=== PATIENT | female | born 1975 | race Caucasian/White ===

== ENCOUNTER → 2018-05-19 12:23 | Outpatient (REF) | payer BC, SELFPAY ==
--- NOTE | 2018-05-19 15:00 | SKI_PTH ---
PATIENT: Zohra Esposito LOC: [facility] U#:[id number] AGE/SX: 50/F ROOM: RE05/19/[address]: Pham Phillips MD : 1975 BED: DIS: SPEC #: [id number] RECD: 05/20/18 12:39 STATUS: ASHLEIGH DOWNS #: [id number] JAYDA: 05/19/18 15:[address]: Pham Wilson DEPT: Surgical Specimen RECD BY: Mervat Hernandez ENTERED: 05/20/18 12:40 SP TYPE: MARIUM MASON DR: NEL Williamson Tissues: 1 - SKIN BIOPSY(SHAVE/PUNCH) 2 - SKIN BIOPSY(SHAVE/PUNCH) 3 - SKIN BIOPSY(SHAVE/PUNCH) 4 - SKIN BIOPSY(SHAVE/PUNCH) Procedures: SKIN LEVEL 4 Comments: [id number]
== END ==
LOC: LBN 12:23
PROVIDERS: PCP Nurse Practitioner Family; Visit Provider Internal Medicine
DX: D22.71 Melanocytic nevi of right lower limb, including hip (principal); L82.1 Other seborrheic keratosis; D17.24 Benign lipomatous neoplasm of skin and subcutaneous tissue of left leg
CPT/HCPCS: 88305

== ENCOUNTER → 2018-05-22 01:42 | Outpatient (CLI) | payer BC, SELFPAY ==
--- NOTE | 2018-05-22 09:51 | DI.REPORT_ITS ---
SYMPTOM/DIAGNOSIS: WORSENING LEFT CALCANEAL PAIN LFT FOOT PAIN M79.672 LEFT FOOT: The bony structures are normally mineralized. The joint space is intact. A 6.5 mm calcaneal spur is demonstrated. The examination is otherwise unremarkable.
--- NOTE | 2018-05-22 09:51 | DI.REPORT_ITS ---
SYMPTOM/DIAGNOSIS: SCREENING, Z12.31 MAMMOGRAM: Mammograms were interpreted according to the usual protocol including computer analysis with CAD system, tomosynthesis and C view imaging. The breast tissue is of moderate radiodensity - category B. There are two questionable small areas of nodularity lying in the medial portion of the right breast. SUMMARY: There is a question of interval development of one or possibly two small nodular densities in the right breast. Further assessment with a CC compression spot film and ultrasound is recommended. Category 0 -B MQSA ASSESSMENT OF FINDINGS: Incomplete: Needs additional imaging evaluation. Category 0. Patient will receive a letter notifying them of these results. BI-RADS category B. There are scattered areas of fibroglandular density.
== END ==
PROVIDERS: PCP Nurse Practitioner Family; Visit Provider Nurse Practitioner Family
DX: M79.672 Pain in left foot (principal); Z12.31 Encounter for screening mammogram for malignant neoplasm of breast; R92.8 Other abnormal and inconclusive findings on diagnostic imaging of breast
CPT/HCPCS: 77063; 77067; 73630

== ENCOUNTER → 2018-05-22 01:45 | Outpatient (CLI) | payer BC, SELFPAY ==
[2018-05-22 10:01] LABS: Cholesterol 148 mg/dL (50-200); Glucose 102 mg/dL (70-100); HDL Cholesterol 42 mg/dL (40-60); LDL CHOLESTEROL 96 mg/dL (<100); Triglyceride 56 mg/dL (30-150)
== END ==
PROVIDERS: PCP Nurse Practitioner Family; Visit Provider Nurse Practitioner Family
DX: Z00.00 Encounter for general adult medical examination without abnormal findings (principal); E66.9 Obesity, unspecified
CPT/HCPCS: 36415; 80061; 82947; 83721

== ENCOUNTER 2018-06-06 13:00 | Outpatient (RCR) | payer BC, SELFPAY ==
--- NOTE | 2018-06-03 13:41 | IE_ITS ---
Date: June 03, 2018 Referring: Sonia Mathis NP M.D. Diagnosis: left foot pain SUBJECTIVE: History of Present Illness: Zohra is a 42 year old female noting increasing left foot pain beginning in Nov 2017. She reports she increased her exercise regime to lose weight. She has lost a total of 60# overall, which is helpful, however the foot continues to worsen. She has been utilizing self treatment for the past few months. She has had previous plantar fascitis, and has utilized self stretching and self massage techniques with minimal benefits. She waited to seek consultation via her PCP at her Wellness appointment a couple of weeks ago. She was referred to [facility]. Pain Ratin/10 Pain Location: Plantar surface of the left foot, extending into the Achilles tendon and calf of the left LE. Current Level of Function: Restricted with her walking distance. Has limited heel strike because of the pain. The first few steps after prolonged sitting are quite uncomfortable. She continues to push through with her normal exercise regime. She is very pleased about her weight loss, and wants to continue to lose. 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 She lives alone in a private home. Comorbidities: , S/p right rotator cuff repair Falls in the last year: __x__ No ____Yes - How many? ____ - (if over 2, balance SM needs to be completed) Reported hospitalizations in the last year - __x__ No ____ Yes - Dates of admission/reason: Medications: See patient's EMR. Quality of Life: ____ Excellent __x__ Good ____ Fair ____ Poor Standardized Measures: LEFS score: _44/80 representing a 45% perceived disability rating.___ OBJECTIVE: Posture: Moderate pronation bilaterally. Observation: (behavior, atrophy, skin color, etc.) Does not appear to be in any acute distress. She is independent with functional transfers. Gait: Limited stance phase. Limited heel strike on the left LE secondary to increased left heel pain. Palpation: Sensitive at the medial calcaneal tubercle, along the plantar fascia on the left and into the Achilles tendon, as well as into the medial gastroc and soleus. ROM: Demonstrates WFL knee and hip mobility. Has tightness with ankle dorsiflexion bilaterally, limited to 5 . Otherwise, has WNL ankle plantar flexion, inversion and eversion. Tightness of the hamstrings, limited to 75 , however is equal bilaterally. Strength: Grossly 5/5 throughout LE myotomes with the exception of right dorsiflexion at 4/5 with pain on the left. Neuro: Sensation intact to light touch. Balance: Unilateral stance 10+ seconds bilaterally with increased irritation on the left. Treatment: IE: 94142 x1 Patient Education: Instruction in a HEP promoting gastroc soleus and plantar fascia flexibility. Instruction to avoid walking barefoot. Always keep adequate arch support with appropriate footwear. Accommodative orthotics will be made at her next appointment. She did receive an ultrasound to the Achilles x8 minutes @50% @3 megahertz 1.0 watt per cm sq while in prone (left Achilles). Soft tissue mobilization to the left plantar fascia, gastroc and soleus. Desensitization and trigger point work provided as needed. Ice massage to the Achilles and plantar fascia as well as medial calcaneal tubercle. Direct treatment time: 50 min. Total treatment time: 50 min. ASSESSMENT: Patient is a 42-year-old female, referred for PT services with the diagnosis of left foot pain. Patient presents with clinical signs and symptoms consistent with plantar fascitis left foot and Achilles tendinitis, as demonstrated by the following impairment level findings: 1) impaired gait pattern 2) impaired balance 3) impaired muscle performance 4) soft tissue dysfunction Impairments are contributing to the following functional limitations: 1) stair negotiation 2) walking distance 3) standing tolerance Patient is assessed as: __x__ Low 52456 complexity, based on the following: History: (list): See comorbidities and social history Examination: (list): See above for functional limitations and impairments. Presentation: Stable Decision-Making: Low complexity supported by clinical judgement and LEFS score ____ Patient requires skilled PT intervention to remediate the above functional limitations to return to: __x__ Premorbid level of function __x__ Return to full functional mobility with manageable symptoms STG: __4__ weeks. 1) independent and compliant with strong HEP 2) improve soft tissue length of the gastroc to 10 with manageable symptoms 3) able to demonstrate improved gait mechanics with normalized heel to toe fashion with improved heel strike and stance phase with more manageable symptoms 4) reduce perceived disability rating via LEFS by 25% LTG: __8__ weeks. 1) returning to premorbid level of function with more manageable symptoms 2) returning to full, painfree functional mobility 3) independent with self maintenance program PLAN: Patient to be seen 2x per week, for 8 weeks, adjusting frequency of visits per patient symptoms and response to treatment. Treatment to include: Manual therapy - 47823 - promotion of soft tissue mobs and soft tissue stretching, desensitization Ultrasound - 57749 - applied as need be for inflammation and pain reduction at the Achilles and plantar fascia Therapeutic exercise - 17905 - promotion of open and closed kinetic chain stabilization, proprioceptive and balance activities, eccentric gastroc training in order for Zohra to be able to resume her normal exercise regime with more symptomatic relief. I did recommend elliptical machine vs. treadmill , at this time, to reduce the repetitive stress and irritation to the heel and calf. Accommodative orthotics will be fabricated at her next session. Will discharge when the above goals have been met. Thank you for this referral. Please do not hesitate to contact me with any questions or concerns regarding this patient's plan of care.
--- NOTE | 2018-06-06 13:00 | NT_ITS ---
06/06/18 Today I fabricated a pair of custom orthotics using Aliplast and Plastizote with felt saphoid pad. These fit well in her shoes upon completion. Proper break in time was gone over with Zohra. She will contact me if she needs any modifications. NO CHARGE. RF/dl
== END 2018-06-13 23:59 | disposition home or self-care (01) ==
LOC: PT 13:00
PROVIDERS: PCP Nurse Practitioner Family; Referring Provider Nurse Practitioner Family; Visit Provider Nurse Practitioner Family
DX: M72.2 Plantar fascial fibromatosis (principal); M76.62 Achilles tendinitis, left leg
CPT/HCPCS: 97161

== ENCOUNTER 2018-06-17 01:27 | Outpatient (CLI) | payer BC, SELFPAY ==
--- NOTE | 2018-06-17 14:30 | DI.COMBO_ITS ---
SYMPTOMS/DIAGNOSIS: F/U ABNORMAL MAMMO, ? ONE OR TWO SMALL NODULAR DENSITIES ADDITIONAL MAMMOGRAPHIC VIEWS, RIGHT BREAST, AND RIGHT BREAST ULTRASOUND: Additional images are interpreted according to the usual protocol including tomosynthesis and 2D imaging. Additional mammographic views were obtained to evaluate questionable areas of asymmetric density in upper outer quadrant of the right breast seen on recent mammogram. Additional mammographic views failed to show a discrete mass. Breast ultrasound shows no evidence of a mass or cyst. CONCLUSION: No specific evidence of malignancy at this time. Follow-up unilateral right breast mammogram recommended in six months. Category 3, breast density category B. MQSA ASSESSMENT OF FINDINGS: Probably benign. Six month follow-up recommended. Category 3. Patient will receive a letter notifying them of these results. BI-RADS category B. There are scattered areas of fibroglandular density.
== END 2018-06-17 01:47 ==
PROVIDERS: PCP Nurse Practitioner Family; Visit Provider Nurse Practitioner Family
DX: Z12.31 Encounter for screening mammogram for malignant neoplasm of breast (principal); R92.8 Other abnormal and inconclusive findings on diagnostic imaging of breast; N64.59 Other signs and symptoms in breast
CPT/HCPCS: 76642; 77063; 77067

== ENCOUNTER 2018-10-09 13:31 | Outpatient (CLI) | payer BC, SELFPAY ==
[2018-10-09 16:04] LABS: Anion Gap 10.1 mmol/L (3-11); BUN 13 mg/dL (7-18); CO2 26.9 mmol/L (21.0-32.0); CREATININE 0.83 mg/dL (0.55-1.02); Calcium 8.7 mg/dL (8.5-10.1); Chloride 101 mmol/L (98-107); Glucose 126 mg/dL (70-100); Potassium 3.9 mmol/L (3.5-5.1); Sodium 138 mmol/L (136-145)
[2018-10-09 16:47] LABS: Hemoglobin A1C 5.8 % (4.5-6.2)
== END 2018-10-09 13:51 ==
PROVIDERS: PCP Nurse Practitioner Family; Visit Provider Nurse Practitioner Family
DX: R73.03 Prediabetes (principal); E16.2 Hypoglycemia, unspecified
CPT/HCPCS: 36415; 80048; 83036

== ENCOUNTER 2018-12-15 01:30 | Outpatient (CLI) | payer BC, SELFPAY ==
--- NOTE | 2018-12-15 14:22 | DI.MAMMO_ITS ---
SYMPTOM/DIAGNOSIS: 6 MO F/U, F/U ABNL MAMMO RIGHT MAMMOGRAM: Mammograms were interpreted according to the usual protocol including computer analysis with CAD system, tomosynthesis and C view imaging. Comparison is made with 2018 and 2013. This is a 6 month follow up for a small area of nodularity seen in the lateral breast. The right breast is composed of scattered fibroglandular densities. No suspicious masses or suspicious microcalcifications are seen. The questioned areas of nodularity are not evident on today's exam. IMPRESSION: Category 1, negative mammogram. Bilateral screening should be resumed in 6 months. [facility] ASSESSMENT OF FINDINGS: Negative. Category 1. Patient will receive a letter notifying them of these results. BI-RADS category B. There are scattered areas of fibroglandular density.
== END 2018-12-15 01:50 ==
PROVIDERS: PCP Nurse Practitioner Family; Visit Provider Nurse Practitioner Family
DX: Z12.31 Encounter for screening mammogram for malignant neoplasm of breast (principal); R92.8 Other abnormal and inconclusive findings on diagnostic imaging of breast; N60.81 Other benign mammary dysplasias of right breast
CPT/HCPCS: 77061; 77065; G0279

== ENCOUNTER 2019-03-02 12:14 | Outpatient (REF) | payer BC, SELFPAY | END 2019-03-02 12:34 | LOC: LBN 12:14 | PROVIDERS: PCP Nurse Practitioner Family; Visit Provider Nurse Practitioner Family | DX: R69 Illness, unspecified (principal) | CPT/HCPCS: 87324 ==

== ENCOUNTER 2019-07-08 07:23 | Outpatient (CLI) | payer OTHER, SELFPAY ==
--- NOTE | 2019-07-08 09:20 | DI.RAD_ITS ---
EXAM: XR CHEST 2V PA LATERAL INDICATION: repetitive head bunting trauma yesterday S29.9XXA INJURY OF THORAX,Y99.0, COMPARISON: ABD FLAT UPRIGHT PA CHEST from 01/10/2015 TECHNIQUE: 2D digital imaging was performed. FINDINGS: The lungs are well expanded and free of infiltrate. There is no evidence of a pneumothorax or pleural effusion. The heart is not enlarged. The hilar structures, tracheal air column and mediastinum appe ar intact. There is no demonstrated rib fracture. Note is made of post surgical changes involving t he right clavicle. IMPRESSION: There is no evidence of acute cardiopulmonary disease. No acute fractures are identified.
== END 2019-07-08 07:43 ==
PROVIDERS: PCP Nurse Practitioner Family
DX: S20.211A Contusion of right front wall of thorax, initial encounter
CPT/HCPCS: 71046

== ENCOUNTER 2019-11-02 01:21 | Outpatient (CLI) | payer BC, SELFPAY ==
[2019-11-02 12:56] LABS: Hemoglobin A1C 5.6 % (3.8-5.6)
[2019-11-02 13:46] LABS: Anion Gap 7.3 mmol/L (3-11); BUN 11 mg/dL (7-18); CO2 29.7 mmol/L (21.0-32.0); CREATININE 0.78 mg/dL (0.55-1.02); Calcium 8.7 mg/dL (8.5-10.1); Calculated LDL 94 mg/dL; Chloride 104 mmol/L (98-107); Cholesterol 151 mg/dL (<200); Glucose 101 mg/dL (74-106); HDL Cholesterol 44 mg/dL (40-60); Potassium 4.3 mmol/L (3.5-5.1); Sodium 141 mmol/L (136-145); Triglyceride 66 mg/dL (<150)
== END 2019-11-02 01:41 ==
PROVIDERS: PCP Nurse Practitioner Family; Visit Provider Nurse Practitioner Family
DX: R73.03 Prediabetes (principal)
CPT/HCPCS: 36415; 80048; 80061; 83036

== ENCOUNTER 2019-11-30 02:08 | Outpatient (CLI) | payer BC, SELFPAY ==
--- NOTE | 2019-11-30 14:54 | DI.CT_ITS ---
EXAM: CT SINUS WO CLINICAL HISTORY: RHINOSINUSITIS NOT RESOLVING WITH ABX, CHRONIC SINUSITIS, J32.9 COMPARISON: No exams were available for comparison FINDINGS: The frontal sinuses are clear. There is opacification of a single ethmoid air cell on the right. The sphenoid sinuses are clear. The maxillary sinuses are clear. No fluid levels are seen in the sinuses. The mastoid air cells are well pneumatized. The nasal septum deviates to the right. The turbinates are unremarkable. The ostiomeatal complexes are unremarkable. The bones are intact. The soft tissues are unremarkable. IMPRESSION: No significant sinus disease.
== END 2019-11-30 02:28 ==
PROVIDERS: PCP Nurse Practitioner Family; Visit Provider Nurse Practitioner Family
DX: J32.9 Chronic sinusitis, unspecified (principal); Z79.2 Long term (current) use of antibiotics
CPT/HCPCS: 70486

== ENCOUNTER 2019-12-09 01:40 | Outpatient (CLI) | payer BC, SELFPAY ==
--- NOTE | 2019-12-09 09:45 | DI.MAMMO_ITS ---
EXAM: MAMMO SCREENING CLINICAL HISTORY: screening Z12.39 TECHNIQUE: Mammograms were interpreted according to the usual protocol including computer analysis w [employer] CAD system, tomosynthesis and C-view imaging. COMPARISON: 2013 through 2018 FINDINGS: The breasts are composed of scattered fibroglandular densities, Breast Density category B. No suspicious masses or suspicious microcalcifications are seen. No skin thickening or abnormal axillary lymph nodes are seen. There has been no significant change from prior exams. IMPRESSION: BIRADS Category 1, negative mammogram. Yearly screening mammography is recommended.
== END 2019-12-09 02:00 ==
PROVIDERS: PCP Nurse Practitioner Family; Visit Provider Nurse Practitioner Family
DX: Z12.31 Encounter for screening mammogram for malignant neoplasm of breast (principal)
CPT/HCPCS: 77063; 77067

== ENCOUNTER 2020-09-05 09:54 | Outpatient (CLI) | payer BC, SELFPAY ==
[2020-09-06 19:13] LABS: Patient Race White; SARS-CoV-2 RNA Undetected (Undetected); SARS-CoV-2 Specimen Source Nasal
== END 2020-09-05 10:14 ==
PROVIDERS: PCP Nurse Practitioner Family; Visit Provider Nurse Practitioner Family
DX: R05 Cough (principal)
CPT/HCPCS: U0003

== ENCOUNTER 2020-11-04 17:00 | Outpatient (REF) | payer BC, SELFPAY ==
--- NOTE | 2020-11-04 15:30 | PAPFT_PTH ---
PATIENT: Zohra Esposito LOC: [facility] U#:[id number] AGE/SX: 45/F ROOM: RE11/04/[address]: NEL Williamson : 1975 BED: DIS: 11/04/2020 SPEC #: [id number] RECD: 11/04/20 17:26 STATUS: ASHLEIGH DOWNS #: [id number] JAYDA: 11/04/20 15:[address]: Sonia Mathis DEPT: [facility] Cytology RECD BY: Mervat Hernandez Tissues: 1 - CX/ENDOCX FOR PAP SMEARS Procedures: PAP THIN PREP/UVM Screening HPV DNA PROBE Comments: [id number]
== END 2020-11-04 17:20 ==
LOC: LBN 17:00
PROVIDERS: PCP Nurse Practitioner Family; Visit Provider Nurse Practitioner Family
DX: Z12.4 Encounter for screening for malignant neoplasm of cervix (principal); Z11.51 Encounter for screening for human papillomavirus (HPV)
CPT/HCPCS: 88142; 87624

== ENCOUNTER 2020-11-08 03:50 | Outpatient (CLI) | payer BC, SELFPAY ==
[2020-11-08 11:06] LABS: Hemoglobin A1C 5.7 % (<5.7)
[2020-11-08 11:59] LABS: Anion Gap 7.2 mmol/L (3-11); BUN 15 mg/dL (7-18); CO2 25.8 mmol/L (21.0-32.0); CREATININE 0.82 mg/dL (0.55-1.02); Calcium 8.8 mg/dL (8.5-10.1); Calculated LDL 90 mg/dL (<100); Chloride 105 mmol/L (98-107); Cholesterol 145 mg/dL (<200); Glucose 101 mg/dL (74-106); HDL Cholesterol 43 mg/dL (40-60); Potassium 4.3 mmol/L (3.5-5.1); Sodium 138 mmol/L (136-145); Triglyceride 62 mg/dL (<150)
== END 2020-11-08 04:10 ==
PROVIDERS: PCP Nurse Practitioner Family; Visit Provider Nurse Practitioner Family
DX: R73.03 Prediabetes (principal)
CPT/HCPCS: 36415; 80048; 80061; 83036

== ENCOUNTER 2020-12-23 08:21 | Outpatient (CLI) | payer BC, SELFPAY ==
[2020-12-24 18:03] LABS: COVID-19 RT-PCR UVMMC Result Negative (Negative)
== END 2020-12-23 08:22 | disposition home or self-care (01) ==
LOC: LBO 08:21
PROVIDERS: PCP Nurse Practitioner Family; Visit Provider Nurse Practitioner Family
DX: Z20.822 Contact with and (suspected) exposure to COVID-19 (principal)
CPT/HCPCS: U0003

== ENCOUNTER 2020-12-28 21:43 | Outpatient (REF) | payer BC, SELFPAY | END 2020-12-28 21:44 | disposition home or self-care (01) | LOC: NCHCN 21:43 | PROVIDERS: PCP Physician Assistant; Visit Provider Physician Assistant | DX: J02.9 Acute pharyngitis, unspecified (principal) | CPT/HCPCS: 87070 ==

== ENCOUNTER 2020-12-29 07:36 | Outpatient (CLI) | payer BC, SELFPAY ==
[2020-12-30 13:07] LABS: COVID-19 RT-PCR UVMMC Result Negative (Negative)
== END 2020-12-29 07:37 | disposition home or self-care (01) ==
PROVIDERS: PCP Nurse Practitioner Family; Visit Provider Physician Assistant
DX: Z20.822 Contact with and (suspected) exposure to COVID-19 (principal); J02.9 Acute pharyngitis, unspecified
CPT/HCPCS: U0003

== ENCOUNTER 2021-07-20 21:21 | Outpatient (REF) | payer BC, SELFPAY ==
[2021-07-22 11:44] LABS: COVID-19 RT-PCR UVMMC Result Negative (Negative)
== END 2021-07-20 21:22 | disposition home or self-care (01) ==
LOC: LBN 21:21
PROVIDERS: PCP Nurse Practitioner Family; Visit Provider Nurse Practitioner Family
DX: J02.9 Acute pharyngitis, unspecified (principal); Z20.822 Contact with and (suspected) exposure to COVID-19
CPT/HCPCS: U0003; 87070

== ENCOUNTER 2021-08-01 16:36 | Outpatient (CLI) | payer BC, SELFPAY ==
--- NOTE | 2021-08-01 16:30 | RT.EKG_ITS ---
APPROVED REPORT Exam: Resting ECG Reason for Exam: Shortness of Patient Location: O HR:65 bpm ECG Measurements Heart Rate 65 AXIS VT 183 P 47 QRSd 89 QRS 54 QT 403 T 26 QTc 419 Conclusion Sinus arrhythmia...V-rate 55- 76, variation>10%
--- NOTE | 2021-08-01 16:45 | RT.EKG_ITS ---
APPROVED REPORT Exam: Resting ECG Reason for Exam: shortness of breath Patient Location: O HR:61 bpm ECG Measurements Heart Rate 61 AXIS IN 187 P 19 QRSd 88 QRS 52 QT 414 T 15 QTc 418 Conclusion Sinus rhythm...normal P axis, V-rate 60- 99 Normal Electrocardiogram
== END 2021-08-01 16:37 | disposition home or self-care (01) ==
PROVIDERS: PCP Nurse Practitioner Family; Visit Provider Physician Assistant
DX: R06.02 Shortness of breath (principal)
CPT/HCPCS: 93010

== ENCOUNTER 2021-08-02 07:18 | Emergency (ER) | payer BC, SELFPAY ==
[2021-08-02] VITALS (19 sets, daily range): BP systolic 122–157; BP diastolic 56–82; PULSE 70–88; RESP 11–24; TEMP 36.4; O2SAT 92–100
--- NOTE | 2021-08-02 07:15 | RT.EKG_ITS ---
APPROVED REPORT Exam: Resting ECG Reason for Exam: trouble breathing Patient Location: E HR:83 bpm ECG Measurements Heart Rate 83 AXIS NE 164 P 54 QRSd 89 QRS 56 QT 360 T 2 QTc 423 Conclusion Sinus rhythm...normal P axis, V-rate 60- 99
--- NOTE | 2021-08-02 08:00 | W.ED.GENAD ---
Discharge Plan Disposition Patient Disposition: HOME Condition: Improving Discharge Details Clinical Impression: Acute bronchospasm Primary Care Provider: Sonia Mathis ED Provider: John Chapa Home Meds and New Rx's Prescriptions: New prednisone 20 mg tablet 40 mg PO DAILY 3 Days Qty: 6 RF: 0 Continued cetirizine [Zyrtec] 10 mg tablet 10 mg PO DAILY PRN (Reason: allergy symptoms) RF: 0 Mirena 20 mcg/24 hours (6 yrs) 52 mg intrauterine device 1 device intrauterine ONCE Qty: 1 RF: 0 mometasone 50 mcg/actuation spray,non-aerosol 2 spray DOTTIE DAILY PRN (Reason: nasal congestion) Qty: 17 RF: 4 Discontinued prednisone 20 mg tablet 40 mg PO DAILY Qty: 10 RF: 0 Discharge Instructions Instructions: Bronchospasm (ED) Additional Instructions: Follow-up in clinic tomorrow at 9 AM as planned. Take prednisone as prescribed for 3 more days. May use albuterol as provided every 4 hours if needed. Return to the ER for any acute concerns. Medical Decision Making This is a 45-year-old female who presents from home. She has had approximately 4 weeks of a number of symptoms began with a viral upper respiratory illness that felt like previous sinus infection. She has been seen at urgent care in [place], and a primary care physician's office, at [facility]. She has completed a 10-day course of Augmentin and a short burst of prednisone, 40 mg x 5 days with improvement of her ear and throat discomfort. She now presents to ER with complaints of exertional shortness of breath over days to weeks time that seems to have progressed. She did have an urgent care visit yesterday and was referred to the ER but declined at that time. Patient states to me that she has a history of hayfever and frequent sinusitis. No history of reactive airway disease. She does have family history of coronary artery disease. She is afebrile, oxygenating normally and speaking in full sentences. Exam reveals diminished breath sounds and a right-sided wheeze. Differential diagnosis is broad and will consider reactive airway disease, pneumonia/bronchitis, PE or ACS. At the urgent care visit yesterday her discharge instructions included to obtain a CT angiogram and an outpatient stress test. Given both the subjective and objective contributory to her differential diagnosis, patient IV access, screening laboratories obtained referred for chest imaging and COVID-19 swab. Laboratories including CBC, comprehensive panel, BNP, D-dimer and troponin are reassuring. SARS-CoV-2 PCR negative. With her complaint of right anterior chest pain, pleuritic at times, patient underwent CT imaging of the chest: No acute findings. Observed on a vehicle monitor technician and repeat troponin obtained and negative. The patient stable for discharge to home. I will place her on 3 further days of prednisone given the recent sinusitis and probable bronchitis. We will dispense her an albuterol inhaler and she has follow-up tomorrow clinic for recheck. Further test including stress test may be discussed at that time. HPI General Mode of arrival: ambulatory. Date/Time Provider Initiated Documentation: 08/02/21 07:35. Limitations to Documentation: no limitations. Information obtained by: patient. History of Present Illness 45 year old F presents to the emergency department with the chief complaint of Exertional shortness of breath, described as moderate, Quality is described as constant, and is localized to the chest. Patient started experiencing this day(s) and it has been intermittent. No relieving factors improve symptom(s), No exacerbating factors reported . Patient notes cough and shortness of breath; denies chest pain. Patient did receive the following treatments prior to arrival, none Related Data Home Medications Medication Instructions Recorded Confirmed cetirizine 10 mg tablet 10 mg PO DAILY PRN 07/01/20 08/02/21 levonorgestrel 20 mcg/24 hours (7 1 device INTRAUTERINE ONCE #1 ea 01/26/21 08/02/21 yrs) 52 mg intrauterine device mometasone 50 mcg/actuation nasal 2 spray DOTTIE DAILY PRN #17 gm 01/30/21 08/02/21 spray prednisone 40 mg PO DAILY 3 Days #6 tab 08/02/21 Previous Rx's Medication Instructions Recorded levonorgestrel 20 mcg/24 hours (7 1 device INTRAUTERINE ONCE #1 ea 01/26/21 yrs) 52 mg intrauterine device mometasone 50 mcg/actuation nasal 2 spray DOTTIE DAILY PRN #17 gm 01/30/21 spray prednisone 40 mg PO DAILY 3 Days #6 tab 08/02/21 Allergies Allergy/AdvReac Type Severity Reaction Status Date / Time HAY FEVER Allergy Mild HEAD Uncoded 08/01/21 15:56 CONGESTION General Stated Complaint: RespSymp ZECHARIAH: 3 Review of Systems Narrative: No syncope, some lightheadedness with rising. Feels her ears and sore throat are improved. No change to diet or GI/ habits. No chest pain. 8 systems reviewed and otherwise negative. Denies lower extremity pain or swelling. [facility] Medical History Allergic rhinitis Chronic rhinosinusitis IBS (irritable bowel syndrome) IUD surveillance Mirena IUD inserted 05/20/18 Obesity Prediabetes Surgical History History of section (06/28/95) S/P arthroscopy of right shoulder (03/19/17) Family History Mother , At 66 of multiple myeloma MDS (myelodysplastic syndrome) Multiple myeloma Father Heart disease Myocardial infarction Hypertension Hyperlipidemia Type 2 diabetes mellitus Sister No problems noted. Sister No problems noted. Brother Prostate cancer Son No problems noted. Son No problems noted. Maternal Grandfather No problems noted. Maternal Grandmother COPD (chronic obstructive pulmonary disease) Paternal Grandfather No problems noted. 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 Pets and animals: Yes Pets and animals: cat(s) and dog(s) Sexually active: No Current gender identity: female What is your relationship status?: refused to answer How often do you talk on the phone with friends or family?: decline to answer How often do you get together with friends or relatives?: three or more times per week How often do you attend zoroastrianism or jew services?: decline to answer Do you belong to any clubs or organized social groups?: yes Panel score (0-1 are the most socially isolated patients): 2 What type of physical activity do you participate in: walking Duration: 15-30 minutes/day Frequency: 5-6 times per week Peggy/Pentecostalism: None Special peggy needs: No Seatbelt use: always Drive intox or ride w/intox backhaul driver: No Do you feel safe at home: Yes Do you feel safe in your relationship?: Yes Female Reproductive History Menstrual control method: progestin IUCD (Mirena IUD inserted 05/20/18) History History 2 Para 2 Hx # Term Pregnancies Multiple births Hx # Pregnancies Ectopic pregnancies AB induced Hx Number of Living Children 2 AB spontaneous Exam Narrative Exam Narrative: GEN: awake, alert, oriented 3. Pleasant, well groomed, interactive. HEAD: Normocephalic, atraumatic ENT: Mucous membranes moist, oropharynx unremarkable, tympanic membranes visualized, clear, pearlescent, external ear exam unremarkable EYES: PERRL, EOMI NECK: Full ROM, no PRISCILA, no menigismus CHEST/RESP: Nontender, diminished bilaterally, right side wheeze, expiratory CARDIOVASCULAR: RRR, no murmur, rub pepper. 2+ Rad pulse bilateral ABDOMEN: Soft, nontender, no mass. +Bowel sounds EXT: Full ROM, no edema, no rash Neuro: Grossly normal neurologic exam, conversant, interactive. Psych: Speech fluent, thoughts congruent, affect normal Course Vital Signs Vital signs: Vital Signs Temperature 36.4 C L 08/02/21 07:24 Pulse 86 08/02/21 07:24 Respiratory Rate 18 08/02/21 07:24 Blood Pressure 157/81 H 08/02/21 07:24 Pulse Oximetry 97 08/02/21 07:24 Temperature 36.4 C L 08/02/21 07:24 Pulse 86 08/02/21 07:24 Pulse 86 08/02/21 07:50 Respiratory Rate 22 08/02/21 07:50 Respiratory Effort 08/02/21 07:29 Blood Pressure 157/81 H 08/02/21 07:24 Pulse Oximetry 98 08/02/21 07:50 Pain Level 1 08/02/21 07:24
[2021-08-02] MEDS: Normal Saline 1,000 ML 1000 ML IV (08:05)
[2021-08-02 08:10] LABS: Source Nasal/Nares
[2021-08-02 08:11] LABS: Abs Immature Grans 0.06 10^3/uL (0.0-0.06); Absolute Basophil Count 0.02 10^3/uL (0.0-0.2); Absolute Eosinophil Count 0.04 10^3/uL (0.0-0.7); Absolute Lymphocyte Count 2.79 10^3/uL (1.2-3.4); Absolute Neutrophil Count 6.44 10^3/uL (1.2-6.7); Basophils % 0.2; Eosinophils % 0.4; HCT 37.7 % (36.0-46.0); HGB 12.5 g/dL (11.2-15.7); Immature Grans % 0.6; Lymphocytes % 27.8; MCH 30.3 pg (27.0-33.0); MCHC 33.2 % (32.0-36.0); MCV 91.3 fL (80-95); MPV 10.3 fL (8.0-11.0); Nucleated RBC 0 %; Platelet Count 283 10^3/uL (130-400); RBC 4.13 10^6/uL (3.93-5.22); RDW 12.4 % (11.7-14.6); RDW-SD 41.4 fL; WBC 10.05 10^3/uL (4.4-10.8)
--- NOTE | 2021-08-02 08:21 | DI.RAD_ITS ---
Exam(s) XR PORTABLE CHEST AP EXAM: XR PORTABLE CHEST AP CLINICAL HISTORY: SOB TECHNIQUE: 2D digital imaging was performed of the chest. One image was obtained. An AP view was ob tained. COMPARISON: CR XR CHEST 2V PA LATERAL from 07/08/2019 CR XR CHEST 2V PA LATERAL from 07/08/2019 FINDINGS: MEDIASTINUM: Normal. HEART: Normal. PULMONARY VASCULATURE: Normal. LUNGS: Clear. PLEURAL SPACE: No pleural effusion or pneumothorax. BONE:Within normal limits for the patient's age. OTHER FINDINGS:Normal. IMPRESSION: No acute pulmonary findings. DATA REPOSITORY: RADIATION DOSE DELIVERED:
[2021-08-02] MEDS: Albuterol/Ipratropium 3 ML UPD VIAL UPD (08:22)
[2021-08-02 08:43] LABS: D-Dimer 175 ng/mlFEU (<500)
[2021-08-02 08:46] LABS: ALT 33 U/L (14-59); AST 10 U/L (15-37); Albumin 3.4 g/dL (3.4-5.0); Alkaline Phosphatase 73 U/L (46-116); Anion Gap 5.1 mmol/L (3-11); BUN 15 mg/dL (7-18); Bilirubin, Total 0.7 mg/dL (0.2-1.0); CO2 30.9 mmol/L (21.0-32.0); Calcium 8.4 mg/dL (8.5-10.1); Chloride 107 mmol/L (98-107); Estimated GFR 59.43 (mL/min/1.73m2); Glucose 109 mg/dL (74-106); NT-proBNP 233 pg/mL (<300); Potassium 3.4 mmol/L (3.5-5.1); Sodium 143 mmol/L (136-145); Total Protein 6.8 g/dL (6.4-8.2)
[2021-08-02 08:47] LABS: Troponin I < 0.05 ng/mL (<0.06)
[2021-08-02 09:05] LABS: COVID-19 PCR Negative (Negative)
--- NOTE | 2021-08-02 09:15 | DI.CT_ITS ---
Exam(s) CT CHEST PE CTA EXAM: CT CHEST PE CTA CLINICAL HISTORY: R cp, sob, cough. TECHNIQUE: Imaging Protocol: Axial CT angiography was performed with multi-slice acquisition and mu lti-planar and/or 3D reconstructions. CONTRAST MATERIAL: Intravenous: Omnipaque 350 Contrast volume:100 mL COMPARISON: CR XR PORTABLE CHEST AP from 08/02/2021 FINDINGS: Tracheobronchial tree: Patent where visualized. Pulmonary parenchyma: No consolidation or dominant measurable mass. No architectural distortion. Pulmonary Arteries: No evidence of filling defect to suggest pulmonary emboli. Mediastinum and Shala: No dominant adenopathy or fluid collection. Visualized thyroid gland: Unremarkable. Pleura: No effusion or pneumothorax. Heart: The heart is not dilated. No coronary artery calcifications are seen. No pericardial effusion. Aorta: Thoracic aorta non-dilated. No evidence of dissection. Upper abdomen: Unremarkable. Soft tissues: Unremarkable. Bones: Within normal limits for the patient's age. IMPRESSION: 1. No evidence of pulmonary embolism, thoracic aortic dissection or aneurysm. 2. Results of this exam have been verbally communicated with provider. RADIATION DOSE DELIVERED: 658.07mGy.cm Total DLP DATA REPOSITORY: All CT scans at this facility are submitted to the National Radiology Data Registry (NRDR) Dose Index Registry (DIR) with the [employer] (ACR). RADIATION OPTIMIZATION: All CT scans at this facility use at least one of these dose optimization te chniques: automated exposure control; mA and/or kV adjustment per patient size (includes targeted exa ms where dose is matched to clinical indication); or iterative reconstruction.
[2021-08-02] MEDS: Normal Saline - Diluent 50 ML VIAL IV (10:34)
--- NOTE | 2021-08-02 11:15 | RT.EKG_ITS ---
APPROVED REPORT Exam: Resting ECG Reason for Exam: sob Patient Location: E HR:74 bpm ECG Measurements Heart Rate 74 AXIS IL 184 P 43 QRSd 89 QRS 43 QT 380 T 13 QTc 423 Conclusion Sinus rhythm...normal P axis, V-rate 60- 99
[2021-08-02 11:36] LABS: Troponin I < 0.05 ng/mL (<0.06)
[2021-08-02] MEDS: Inhaler, Assist Device 1 EACH MC (11:52)
[2021-08-02] MEDS: Albuterol HFA 8 GM 60 PUFF INH IH (11:52)
== END 2021-08-02 12:04 | disposition home or self-care (01) ==
PROVIDERS: Emergency Provider Emergency Medicine; PCP Nurse Practitioner Family
DX: J98.01 Acute bronchospasm (principal); Z20.822 Contact with and (suspected) exposure to COVID-19; Z03.818 Encounter for observation for suspected exposure to other biological agents ruled out
CPT/HCPCS: 36415; 71275; 80053; 87635; 93005; 94640; 96360; 96361; 99285; 71045; 83880; 84484; 85025; 85379; 93010; 99284; J7620

== ENCOUNTER 2021-08-04 07:31 | Outpatient (CLI) | payer BC, SELFPAY ==
[2021-08-04] MEDS: Albuterol HFA 18 GM 200 PUFF INH IH (09:18)
[2021-08-04] MEDS: Inhaler, Assist Device 1 EACH MC (09:18)
--- NOTE | 2021-08-07 13:29 | W.PFT ---
Date of service: 08/04/21 Time of Service: 08:09 Pulmonary Function Test Result Requesting Provider Cisco Egan Indications: Dyspnea on exertion Interpretation Spirometry: There is no airflow limitation. There is no significant bronchodilator effect. There is some inspiratory blunting seen on the flow volume loop. Lung Volumes: Lung volumes are normal. Diffusion Capacity: The diffusion is normal. Airway Pressure: Airways resistance is normal. Impression Normal pulmonary function test. The blunting on the inspiratory loop of the flow volume loop could represent vocal cord dysfunction in the correct clinical context. Clinical Correlation therefore is recommended.
== END 2021-08-04 07:32 | disposition home or self-care (01) ==
LOC: RT 07:32
PROVIDERS: PCP Nurse Practitioner Family; Visit Provider Nurse Practitioner Family
DX: R06.09 Other forms of dyspnea (principal)
CPT/HCPCS: 94060; 94726; 94729

== ENCOUNTER 2021-08-15 00:49 | Outpatient (CLI) | payer BC, SELFPAY ==
--- NOTE | 2021-08-15 15:00 | ETT_ITS ---
APPROVED REPORT Exam: Exercise Treadmill Patient Location: Out-Patient Room/Bed: Stress Nurse: Anika Bunch RN Ordering Provider:EDGAR PAUL, Contact Number: [phone] BMI: 45.18 Baseline Rhythm: Sinus Rhythm Indications: SOB Medical History Medical History: Prediabetes, obesity Cardiac Medications: None Allergies: NKA Cardiac Risk Factors: Prediabetes, obesity, family hx Previous Cardiac Procedures: None Pretest Chest Pain Characteristics: None Exercise History: Sedentary Physical Disabilities: None Lung Sounds: Clear to auscultation Heart Sounds: Regular Stress Test Details Test: Exercise stress testing was performed using a Charles protocol. Rest Stress HR Resting HR Supine: 87 bpm Max Heart Rate (APMHR): 173 bpm Resting HR Standin bpm Target HR (85% APMHR): 147 bpm Max HR Achieved: 164 bpm % of APMHR: 94 Recovery HR: 98 bpm HR response to stress: Normal HR response to stress BP Resting BP Supine: 114/70 mmHg Resting BP Standin/74 mmHg Max BP: 174/70 mmHg Recovery BP: 132/74 mmHg BP response to stress: Normal blood pressure response to stress. ECG Resting ECG: Sinus Rhythm Ectopy: None Stress ECG: Sinus Tachycardia ST Change: Horizontal ST depression, Upsloping ST depression Lead(s): II, III, aVF Stage: [address] Deviation: 1 mm Arrhythmia: Rare PAC Recovery ECG: Sinus Rhythm Recovery ST Change: No significant ST segment changes noted Recovery Arrhythmia: Occasional PAC, , None, APC Clinical Reason for Termination: Fatigue Stress Symptoms: General Fatigue, Dyspnea Exercise duration: 7 min55 sec Highest Stage Reached: Stage 3: 3.4 mph at 14% grade. Exercise capacity: 10.01 METs Kaiser Treadmill Score: 7.0 Rate Pressure Product: 99652 Stress ECG Conclusion 1. Resting electrocardiogram showed voltage for left ventricular hypertrophy 2. Patient exercised on the Charles protocol and completed a workload of 10 METS 3. Normal heart rate and blood pressure response to exercise. The patient achieved 94% of predicted heart rate for age 4. Electrocardiographically there was no evidence of myocardial ischemia 5. There were no significant dysrhythmias Kaiser Treadmill Score is 7.0 which is Low risk. Stress Test Summary STAGE Time (mins) Speed (mph) Grade (%) HR BP SYMPTOMS METS Supine 87 114/70 Standing 94 132/74 SpO2 94% 1 3 1.7 10 129 140/70 SpO2 93% 4.6 2 6 2.5 12 148 152/74 moderate SOB, SpO2 93% 7 3 9 3.4 14 164 10.2 1 min recovery 138 174/70 symptoms resolved, SpO2 97% 3 min recovery 107 170/78 SpO2 96% 6 min recovery 98 132/74 SpO2 98%
== END 2021-08-15 01:09 ==
PROVIDERS: PCP Nurse Practitioner Family; Visit Provider Physician Assistant
DX: R06.02 Shortness of breath (principal); R73.03 Prediabetes; E66.9 Obesity, unspecified; Z82.49 Family history of ischemic heart disease and other diseases of the circulatory system
CPT/HCPCS: 93017

== ENCOUNTER 2021-08-23 01:30 | Outpatient (CLI) | payer BC, SELFPAY ==
[2021-08-23 08:30] VITALS: BP 110/77; PULSE 76; RESP 16; TEMP 37.4; O2SAT 96
[2021-08-23 09:17] VITALS: BP 120/79; PULSE 65; RESP 16; TEMP 36.4; O2SAT 97
[2021-08-23 09:40] VITALS: BP 115/76; PULSE 63; RESP 16; TEMP 36.9; O2SAT 97
[2021-08-23 10:15] VITALS: BP 105/72; PULSE 64; RESP 16; TEMP 36.8; O2SAT 94
[2021-08-23] MEDS: Normal Saline 500 ML 30 ML IV (10:27)
[2021-08-23] MEDS: Normal Saline Flush 10 ML SYR IVP (10:27)
[2021-08-23 11:24] VITALS: BP 112/63; PULSE 63; RESP 16; TEMP 36.7; O2SAT 94
[2021-08-23 11:27] VITALS: BP 112/68; PULSE 63; RESP 16; TEMP 36.7; O2SAT 94
== END 2021-08-23 01:31 | disposition home or self-care (01) ==
PROVIDERS: PCP Nurse Practitioner Family; Visit Provider Family Medicine
DX: U07.1 COVID-19 (principal)
CPT/HCPCS: 96365

== ENCOUNTER 2022-01-11 02:20 | Outpatient (CLI) | payer BC, SELFPAY ==
--- NOTE | 2022-01-11 08:00 | DI.MRI_ITS ---
Exam(s) MR LUMBAR SPINE WO EXAM: MR LUMBAR SPINE WO CLINICAL HISTORY: severe LBP, sciatica on left, leg weakness,m54.42. TECHNIQUE: Multiplanar multisequence MRI of the Lumbar spine was performed. COMPARISON: None FINDINGS: Bones: The last intervertebral disc space is designated the L5/S1 level for the numbering purpose of this examination. The vertebral body heights are well maintained. Alignment is satisfactory. The ma rrow signal shows red marrow reconversion which could be seen with obesity. Cord: The conus tip ends at the T12 level. It is of normal size and signal intensity. T12-L1: No disc herniations or bulges are present. No central spinal canal or neural foraminal stenos is. L1-2: No disc herniations or bulges are present. No central spinal canal or neural foraminal stenosis . L2-3: No disc herniations or bulges are present. No central spinal canal or neural foraminal stenosis . L3-4: There is a left foraminal disc herniation measuring 17 mm impinges on the exiting nerve root. Transverse by 7 millimeters AP by 14 millimeters cephalo caudad. No central canal stenosis. L4-5: No disc herniations or bulges are present. No central spinal canal or neural foraminal stenosis . L5-S1: No disc herniations or bulges are present. No central spinal canal or neural foraminal stenosi s. Soft tissues: The visualized SI joints and sacrum are well maintained. The paraspinal soft tissues ar e unremarkable. IMPRESSION: Large left foraminal disc herniation causing nerve root impingement at L3-4. DATA REPOSITORY:
== END 2022-01-11 02:40 ==
PROVIDERS: PCP Nurse Practitioner Family; Visit Provider Family Medicine
DX: M54.42 Lumbago with sciatica, left side (principal); M51.26 Other intervertebral disc displacement, lumbar region
CPT/HCPCS: 72148

== ENCOUNTER 2022-02-28 10:24 | Outpatient (CLI) | payer BC, SELFPAY ==
[2022-02-28 10:32] VITALS: BP 117/75; PULSE 90; RESP 20; TEMP 36.1; O2SAT 96
[2022-02-28] MEDS: methylPREDNISolone ACETATE 80 MG/ML VIAL IJ (10:54)
--- NOTE | 2022-02-28 10:59 | PDOC.PAIN_ITS ---
Pain Clinic Procedure Note Procedure Note Procedure Note: Lumbar Epidural Steroid Injection Procedure Note COMMENTS: I previously evaluated her in the office. She has a large left sided disc herniation at L3-L4. Dx: Lumbosacral radiculopathy Pre-procedure pain VAS was 6/10. Zohra Esposito has been referred to the [facility] for lumbar epidural steroid injection. The patient was greeted by the nurse who verified patients name and . Patient was then taken to the fluoroscopy suite. The patient was interviewed and the medial record reviewed. There were no medical, pharmacologic, radiographic, or other structural contraindications to attempting fluoroscopically guided lumbar epidural steroid injection. Risks and expected side effects as well as potential benefits of the procedure were reviewed and voiced concerns expressed. The patient consent form was signed and witnessed. Standard patient time-out procedure was performed. The patient was placed in the prone position on the fluoroscopy table and automated blood pressure cuff and pulse oximeter applied. The skin entry point for entering/approaching the epidural space at L3-L4 to the left and marked. Following thorough chlorhexadine preparation of the skin and draping and 1% lidocaine infiltration of the skin entry point and subcutaneous tissues, a 18 gauge Touhy needle was placed under fluoroscopic guidance and with loss of resistance technique into the epidural space. Needle tip placement and depth were aided and confirmed by fluoroscopy. There was no paresthesia or return of blood or CSF through the needle. 1 cc's of Omnipaque 240 was injected with clear epidural spread confirmed with fluoroscopy. 80mg depomedrol was injected. There was not any unusual discomfort expressed by Zohra Esposito. Patient's vital signs were stable throughout the procedure and were as recorded in nursing records. Follow up plans and appointments were discussed with patient. Post procedure instruction was given as documented in nursing records and having met discharge criteria and was discharged from the [facility]. COMMENTS: If this procedure is helpful, it can be completed up to 3 times per 12 months. Post-procedure pain VAS was 1/10. Alexandro Torres DO, MPH [facility]-Pain Management [facility]
--- NOTE | 2022-02-28 11:01 | DI.RAD_ITS ---
Exam(s) XR PAIN CLINIC LUMBAR SP 2V EXAM: XR PAIN CLINIC LUMBAR SP 2V CLINICAL HISTORY: DX: Lumbar radiculopathy TECHNIQUE: 2D and realtime digital imaging was performed. Radiologist not present. CONTRAST MATERIAL: None. COMPARISON: No exams were available for comparison FINDINGS: Fluoroscopy was provided for pain management therapy. Please refer to procedure report or details. Cumulative dose: Ka,r=16.05 mGy IMPRESSION: RADIATION DOSE DELIVERED:
[2022-02-28 11:05] VITALS: BP 147/83; PULSE 99; RESP 20; O2SAT 98
== END 2022-02-28 10:25 | disposition home or self-care (01) ==
LOC: PC 10:24
PROVIDERS: PCP Nurse Practitioner Family; Visit Provider Preventive Medicine Occupational Medicine
DX: M54.17 Radiculopathy, lumbosacral region (principal)
CPT/HCPCS: 62323; 72100; J1040

== ENCOUNTER → 2022-05-21 02:57 | Outpatient (CLI) | payer BC, SELFPAY ==
--- NOTE | 2022-05-21 06:00 | DI.MAMMO_ITS ---
Exam(s) MAMMO SCREENING EXAM: MAMMO SCREENING CLINICAL HISTORY: screening,Z12.39. TECHNIQUE: Bilateral full field digital CC and MLO mammographic images were obtained with 3D tomosyn thesis and utilizing computer aided detection (CAD). COMPARISON: Prior mammograms were reviewed, the most recent being November 2019. FINDINGS: There has been no significant change in the appearance and distribution of fibroglandular tissue There are no new spiculated masses nor malignant appearing microcalcification groups. There is no significant architectural distortion nor skin thickening-retraction. IMPRESSION: No radiographic evidence of malignancy. BI-RADS Category 1 - Negative Breast Density - Category B - Scattered areas of fibroglandular density Breast density Category C or D implies that the patient has dense breast tissue. Dense breast tissue can make it harder to find cancer on a mammogram. Dense breast tissue is also associated with an incr eased risk of breast cancer. This information about the result of the mammogram report was provided to the patient to raise their awareness. Use this report when you speak with the patient about their risks for breast cancer, which includes their family history. At that time, you may recommend additional screening tests (Ultrasoun d or MRI) as these tests may add significant information. A negative radiographic report should not delay biopsy if a dominant or clinically suspicious mass is present. Up to ten percent of cancers are not identified on mammography. A negative report may reinforce clinical impression. Adenosis and dense breasts may obscure an underlying neoplasm. False positive reports average 6 to 10%. Patient will receive a letter notifying them of these results.
== END ==
PROVIDERS: PCP Nurse Practitioner Family; Visit Provider Nurse Practitioner
DX: Z12.31 Encounter for screening mammogram for malignant neoplasm of breast (principal)
CPT/HCPCS: 77063; 77067

== ENCOUNTER → 2023-10-28 04:28 | Outpatient (CLI) | payer OTHER, SELFPAY ==
--- NOTE | 2023-10-28 11:06 | DI.MAMMO_ITS ---
Exam(s) MAMMO SCREENING EXAM: MAMMO SCREENING CLINICAL HISTORY: screening,Z12.39 TECHNIQUE: Mammograms were interpreted according to the usual protocol including computer analysis w [employer] CAD system, tomosynthesis and C-view imaging. COMPARISON: 2013 through 2021 FINDINGS: The breasts are composed of scattered fibroglandular densities, Breast Density category B. No suspicious masses or suspicious microcalcifications are seen. No skin thickening or abnormal axillary lymph nodes are seen. There has been no significant change from prior exams. IMPRESSION: BI-RADS Category 1, Negative mammogram Yearly screening mammography is recommended. Breast Density - Category B, scattered fibroglandular densities. A negative radiographic report should not delay biopsy if a dominant or clinically suspicious mass is present. Up to ten percent of cancers are not identified on mammography. A negative report may reinforce clinical impression. Adenosis and dense breasts may obscure an underlying neoplasm. False positive reports average 6 to 10%. Patient will receive a letter notifying them of these results.
== END ==
PROVIDERS: PCP Nurse Practitioner Family; Visit Provider Nurse Practitioner Family
DX: Z12.31 Encounter for screening mammogram for malignant neoplasm of breast (principal)
CPT/HCPCS: 77063; 77067

== ENCOUNTER 2023-10-28 05:28 | Outpatient (CLI) | payer OTHER, SELFPAY ==
[2023-10-28 11:20] LABS: Anion Gap 6.2 mmol/L (3-11); BUN 11 mg/dL (7-18); CO2 30.8 mmol/L (21.0-32.0); CREATININE 0.9 mg/dL (0.55-1.02); Calcium 8.9 mg/dL (8.5-10.1); Calculated LDL 121 mg/dL (<100); Chloride 100 mmol/L (98-107); Cholesterol 185 mg/dL (<200); Estimated GFR 77.88 (mL/min/1.73m2); Glucose 123 mg/dL (74-106); HDL Cholesterol 48 mg/dL (40-60); Sodium 137 mmol/L (136-145); Triglyceride 84 mg/dL (<150)
== END 2023-10-28 05:29 | disposition home or self-care (01) ==
LOC: LBO 05:28
PROVIDERS: PCP Nurse Practitioner Family; Visit Provider Nurse Practitioner Family
DX: Z00.00 Encounter for general adult medical examination without abnormal findings (principal)
CPT/HCPCS: 36415; 80048; 80061

== ENCOUNTER 2024-12-08 01:57 | Outpatient (CLI) | payer OTHER, SELFPAY ==
--- NOTE | 2024-12-08 06:15 | DI.MAMMO_ITS ---
Exam(s) MAMMO SCREENING EXAM: MAMMO SCREENING CLINICAL HISTORY: screening,z12.39 TECHNIQUE: Mammograms were interpreted according to the usual protocol including computer analysis w [employer] CAD system, tomosynthesis and C-view imaging. COMPARISON: 2017 through 2023 FINDINGS: The breasts are composed of scattered fibroglandular densities, Breast Density category B. No suspicious masses or suspicious microcalcifications are seen. No skin thickening or abnormal axillary lymph nodes are seen. There has been no significant change from prior exams. IMPRESSION: BI-RADS Category 1, Negative mammogram Yearly screening mammography is recommended. Breast Density - Category B, scattered fibroglandular densities. A negative radiographic report should not delay biopsy if a dominant or clinically suspicious mass is present. Up to ten percent of cancers are not identified on mammography. A negative report may reinforce clinical impression. Adenosis and dense breasts may obscure an underlying neoplasm. False positive reports average 6 to 10%. Patient will receive a letter notifying them of these results.
== END 2024-12-08 02:17 ==
LOC: DI 01:57
PROVIDERS: PCP Nurse Practitioner Family; Visit Provider Nurse Practitioner Family
DX: Z12.31 Encounter for screening mammogram for malignant neoplasm of breast (principal); R92.323 Mammographic fibroglandular density, bilateral breasts
CPT/HCPCS: 77063; 77067

== ENCOUNTER 2024-12-08 02:40 | Outpatient (CLI) | payer OTHER, SELFPAY ==
[2024-12-08 08:21] LABS: Anion Gap 6.1 mmol/L (3-11); BUN 14 mg/dL (7-18); CO2 29.9 mmol/L (21.0-32.0); CREATININE 0.9 mg/dL (0.55-1.02); Calcium 8.5 mg/dL (8.5-10.1); Chloride 105 mmol/L (98-107); Glucose 113 mg/dL (74-106); Potassium 4.2 mmol/L (3.5-5.1); Sodium 141 mmol/L (136-145)
[2024-12-08 17:26] LABS: Hemoglobin A1C 5.9 % (<5.7)
[2024-12-09 11:29] LABS: HIV-1/2 Ag & Ab Screen Negative (Negative)
[2024-12-09 11:33] LABS: HBs Antibody, Quant 5.8 mIU/mL (See Note); Hep B Surface Ab Negative (See Note); Hepatitis B Core Antibody Negative (Negative); Hepatitis B Surface Antigen Negative (Negative)
[2024-12-09 11:49] LABS: Hepatitis C Ab w Rflx HCV PCR Negative (Negative)
== END 2024-12-08 02:41 | disposition home or self-care (01) ==
PROVIDERS: PCP Nurse Practitioner Family; Visit Provider Nurse Practitioner Family
DX: Z11.4 Encounter for screening for human immunodeficiency virus [HIV] (principal); I10 Essential (primary) hypertension; Z11.59 Encounter for screening for other viral diseases
CPT/HCPCS: 36415; 80048; 86704; 86706; 86803; 87340; 87389; 83036

== ENCOUNTER 2025-02-22 08:57 | Day surgery (SDC) | payer OTHER, SELFPAY ==
--- NOTE | 2025-02-21 18:14 | W.ANESPRE ---
General Info Date of Service Date Performed: 02/22/25 Height: 5 ft 5 in Weight: 126 kg Body Mass Index (BMI): 46.2 Surgical Procedure: Operation Date: 02/22/25 10:35 Proposed Procedure Side Surgeon ning Martell MD Meds Allergies and Home Medications Allergies Allergy/AdvReac Type Severity Reaction Status Date / Time duloxetine AdvReac Intermediate suicidal Verified 02/22/25 09:30 HAY FEVER Allergy Mild HEAD Uncoded 02/22/25 09:30 CONGESTION Home Medication ?Medication ?Instructions ?Recorded levonorgestrel 21 mcg/24 hr (up to 1 device intrauterine ONCE #1 ea 01/26/21 8 years) 52 mg intrauterine device (Mirena) acetaminophen 500 mg tablet 1,000 mg PO Q6H PRN 02/01/22 (Tylenol Extra Strength) diphenhydramine HCl 25 mg capsule 50 mg PO ONCE PRN 10/22/22 (Benadryl) lisinopril 20 mg tablet 20 mg PO DAILY #90 tabs 11/23/24 naproxen sodium 220 mg tablet 220 mg PO BID PRN 11/23/24 (Aleve) loratadine 10 mg capsule (Allergy 10 mg PO DAILY 02/11/25 Relief (loratadine)) cyclobenzaprine 10 mg tablet 10 mg PO BID PRN muscle spasm 02/19/25 Current Visit Medications: Current Medications Generic Name Dose Route Start Last Admin Trade Name Freq PRN Reason Stop Dose Admin Ringer's Solution 1,000 mls @ 80 mls/hr 02/22/25 06:00 IV 03/21/25 23:59 INFUSION HIEU IV Miscellaneous Supplies 1 each 02/22/25 06:00 Iv Access IV 03/21/25 23:59 DIRECTED HIEU Sodium Chloride 0 ml 02/22/25 06:00 Normal Saline Flush 10 Ml Syr IV 03/21/25 23:59 PRN PRN Sodium Chloride 0 ml 02/22/25 06:00 Normal Saline 10 Ml Vial IJ 03/21/25 23:59 DIRECTED PRN Sterile Water 0 ml 02/22/25 06:00 Water,Injection,Sterile 10 Ml Vial IJ 03/21/25 23:59 DIRECTED PRN PFSH Active Problems Active Problems: Problem Status Onset Code Prediabetes Chronic R73.03 Hypertension Chronic I10 Chronic pain syndrome Chronic G89.4 Lumbosacral radiculitis Chronic M54.17 Hyperlipidemia Chronic E78.5 IUD surveillance Chronic Z30.431 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 Allergic rhinitis Chronic J30.9 Obesity Chronic Deviated nasal septum Chronic J34.2 Medical History Medical History Prediabetes Surgical History Surgical History S/P arthroscopy of right shoulder (03/19/17) History of section (06/28/95) Tobacco Smoking/Tobacco Use Status: Never Passive smoking exposure: Yes Second hand exposure: Yes Alcohol Alcohol Intake: current Alcohol intake frequency: holidays/special occasions only Substance Use Substance use: Never Substance use type: does not use Prental History History 2 Para 2 Hx # Term Pregnancies Multiple births Hx # Pregnancies Ectopic pregnancies AB induced Hx Number of Living Children 2 AB spontaneous Vital Signs and Lab Results Vital Signs Most Recent Vital Signs in EMR: Temp Pulse Resp BP Pulse Ox 36.3 C L 95 H 16 127/81 97 02/22/25 09:10 02/22/25 09:10 02/22/25 09:10 02/22/25 09:10 02/22/25 09:10 Lab Results Blood Type / Crossmatch: No Data to Display Complete Blood Count: No Data to Display Complete Metabolic Panel: No Data to Display Liver Function Panel: No Data to Display Coagulation Panel: No Data to Display Cardiac Panel: No Data to Display Arterial Blood Gas: No Data to Display Venous Blood Gas: No Data to Display Pancreas Panel: No Data to Display Thyroid Panel: No Data to Display Infectious Disease: No Data to Display Blood Cultures: No Data to Display Toxicology Panel: No Data to Display Panel: No Data to Display Anesthesia Assessment and Plan Anesthesia History Personal History: No History of Anesthesia Complications Family History: No Family History of Anesthesia Complications Exercise Tolerance Exercise Tolerance: Metabolic Equivalents>4 Cardiac & Pulmonary Exam Cardiac Exam: Normal S1/S2 Heart Sounds Pulmonary Exam: Clear Bilateral Breath Sounds Implantable Cardiac Device Does patient have a Pacemaker or an ICD?: No Airway Exam Known Difficult Airway: No Mallampati Class: 3 Mouth Opening: Normal (> 3cm) Thyromental Distance: Greater than 3 cm Neck Range of Motion: Full ROM Neck Circumference: Thick Teeth Condition: Normal Dentition ASA Classification ASA Score: ASA 3 Emergency Case?: No NPO Status NPO Status: NPO Clears >2 hours, Solids >8 hours Status Status: Not Relevant due to Medical History Anesthesia Plan Resuscitation Status: Full Code Anesthesia Technique: General Anesthesia Airway Planned: Natural Airway Monitors Used: Standard Monitors Preoperative Comments:: 49 yo female for colo. Sig PMHx: HTN (lisinopril), PreDM, bmi 46, back pain, chronic pain. ECG: sinus. Stress: 10 METS, no evidence of ischemia.
--- NOTE | 2025-02-21 19:19 | W.PM.DSUDISC ---
Date of service: 02/22/25 Discharge Plan Disposition Patient Disposition: Home Condition: Good Discharge Details Reason For Visit: screening colonoscopy Attending Provider: Mark Anthony Martell Primary Care Provider: Sonia Mathis Home Meds and New Rx's Prescriptions: Continued Allergy Relief (loratadine) 10 mg capsule 10 mg PO DAILY Mirena 20 mcg/24 hours (6 yrs) 52 mg intrauterine device 1 device intrauterine ONCE Qty: 1 0RF Rx Instructions: as a single dose acetaminophen [Tylenol Extra Strength] 500 mg tablet 1,000 mg PO Q6H PRN diphenhydramine HCl [Benadryl] 25 mg capsule 50 mg PO ONCE PRN naproxen sodium [Aleve] 220 mg tablet 220 mg PO BID PRN lisinopril 20 mg tablet 20 mg PO DAILY Qty: 90 3RF Rx Instructions: Take 1 tablet daily cyclobenzaprine 10 mg tablet 10 mg PO BID PRN (Reason: muscle spasm) Discontinued bisacodyl [Dulcolax (bisacodyl)] 5 mg tablet,delayed release (DR/EC) 5 mg PO ONCE Qty: 4 0RF Rx Instructions: Take per colonoscopy instructions provided by ordering providers office polyethylene glycol 3350 17 gram/dose powder 17 g PO ONCE Qty: 238 0RF Rx Instructions: Take per colonoscopy instructions provided by ordering providers office Discharge Instructions Additional Instructions: Annette, it was nice to meet you today, and I hope you feel well after the procedure. Things went very smoothly. I did not see any signs of tumors, polyps, or any other worrisome pathology. With a negative screening colonoscopy today, I recommend a follow-up in 10 years. If you have any questions at all, please do not hesitate to ask. 1. If tolerated, consume a soft, low fiber diet for 1-2 days. 2[address] Do not drive, drink alcohol, operate machinery, make critical decisions, or do activities that require coordination or balance for 24 hours. 3. Because air was put into your colon during the procedure, expelling air from your rectum (passing gas or farting) is normal. 4. You may not have a bowel movement for 1-3 days because of the colonoscopy prep. This is normal. 5. Go directly to the emergency room if you notice any of the following: Develop chills (warm to touch), or if you have a thermometer and your temperature is above 101 Difficulty breathing or difficultly swallowing Persistent vomiting Severe abdominal pain, other than gas cramps Severe chest pain Black, tarry stools Any bleeding ? exceeding one tablespoon 6. Call your physician if the site where your intravenous was started becomes red, swollen, painful, and warm to touch. 7. Your physician has reviewed your pre-procedure medications. Please continue to take those medications as previously ordered. You will be given specific information/education regarding any changes to your medications before leaving. Activity:: Activity as Tolerated Diet:: As Tolerated Discharge Orders Discharge Orders: Discharge Order (Routine); Ordered 02/21/25 Ordered By: Mark Anthony Martell DS: Diagnosis Discharge Diagnosis (1) Encounter for screening colonoscopy: Status: Acute Asessment and Plan: Negative screening colonoscopy;
--- NOTE | 2025-02-21 19:20 | COLE_ITS ---
Date of service: 02/22/25 Time of Service: 11:11 Colonoscopy Report Date of procedure: 02/22/25 Pre-op diagnosis general: screening colonoscopy Post-op diagnosis procedure note: other (Negative screening colonoscopy) Procedure: colonoscopy Surgeon: Mark Anthony Martell Anesthesia Type: General:No Airway Estimated blood loss (mL): 0 Pathology: none sent Complications: None Disposition: same day Indications: Zohra is a 49 year old woman who needs a screening colonoscopy Prep: Miralax/Dulcolax Procedure Start Time: 10:42 Procedure End Time: 10:59 Retraction Time: 11 Findings: Negative screening colonoscopy Procedure Description: After the induction of anesthesia, and with the patient in left lateral decubitus position, I began by performing an external anorectal exam.? Perineum and skin were normal, as was the anal verge.? There was no evidence of external hemorrhoids.? Next, I performed a digital rectal exam.? I did not appreciate any abnormal findings.? Next, I advanced a colonoscope into the rectal vault.? I performed retroflexion.? This appeared normal.? Using insufflation, I then advanced the colonoscope beyond the rectal folds and into the sigmoid colon before advancing towards the cecum.? The scope was noted to be in the cecum by identification of the ileocecal valve and appendiceal orifice.? I then began withdrawing the colonoscope using repeated irrigation as necessary for full evaluation of the colonic mucosa. ?Once the scope was withdrawn to the level of the rectum, great care was taken to examine portions of the rectal folds.? I saw no signs of tumors, polyps, or any other worrisome pathology. Finally, the scope was withdrawn and the patient was brought to the same-day surgery recovery unit as the anesthetic wore off. ?The findings and instructions were shared with the patient prior to discharge. [place] Bowel Prep [place] Bowel Prep Right Colon: 2 Left Colon: 2 Transverse Colon: 2 Total Score: 6
[2025-02-22 09:10] VITALS: BP 127/81; PULSE 95; RESP 16; TEMP 36.3; O2SAT 97
[2025-02-22] MEDS: Lactated Ringers 1,000 ML 80 ML IV (09:45)
[2025-02-22 10:22] VITALS: BMI 46.2
[2025-02-22 11:03] VITALS: BP 87/74; PULSE 99; RESP 18; TEMP 36.6; O2SAT 96
--- NOTE | 2025-02-22 11:09 | W.ANESPOSTOP ---
Postoperative Evaluation Date, Time and Location Date Performed: 02/22/25 Time Performed: 11:09 Patient Location: Day Surgery Unit Vital Signs Most Recent Imported Vital Signs: Most Recent Vital Signs Temp Pulse Resp BP Pulse Ox 36.4 C L 95 H 16 127/81 97 02/22/25 10:56 02/22/25 09:10 02/22/25 09:10 02/22/25 09:10 02/22/25 09:10 Pain Score Most Recent Pain Score: Most Recent Pain Score Pain Level 0 02/22/25 11:06 Assessment Mental Status: Awake (Alert & Oriented to Patient Baseline) Airway and Respiratory Function: Patent airway with normal (patient baseline) respiratory exam Cardiovascular Function: Hemodynamically Stable Hydration Status: Adequately Hydrated Nausea & Vomiting: No Nausea or Vomiting Pain: Pt. Denies Any Pain Peripheral Nerve Block: Patient did not receive a nerve block
[2025-02-22 11:32] VITALS: BP 107/62; PULSE 84; RESP 16; TEMP 36.7; O2SAT 97
== END 2025-02-22 11:40 | disposition home or self-care (01) ==
LOC: SUR 08:58
PROVIDERS: PCP Nurse Practitioner Family; Visit Provider Surgery
PROC: 0DJD8ZZ Inspection of Lower Intestinal Tract, Via Natural or Artificial Opening Endoscopic (ICD-10-PCS; CPT 45378; principal; 2025-02-22 10:30)
DX: Z12.11 Encounter for screening for malignant neoplasm of colon (principal)
CPT/HCPCS: 45378; J2704